=== PATIENT | male | born 1965 | race Caucasian/White ===

== ENCOUNTER 2016-11-05 21:22 | Emergency (ER) | payer OTHER ==
[~2016-11-05] VITALS: Ht 172.7 cm; Wt 80.6 kg
[~2016-11-05 21:22] MED LIST: ROLAIDS PO
--- OUTSIDE RECORDS SUMMARY | 2016-11-05 21:27 | XMS REPORT | Continuity of Care Document ---
Author Author [facility] Address Unknown Phone Unavailable Allergies Active Description Code Type Severity Reaction Onset Reported/Identified Relationship to Patient Clinical Status Yes No Known Drug Allergies [id number] Drug Allergy Unknown N/ A 04/05/2014 Medications Problems Date Dx Coded Attending Type Code Diagnosis Diagnosed By 04/05/2014 HARMONY BERNABE, DANIELA Ferro Ot 789.00 ABDOMINAL PAIN, UNSPECIFIED SITE Procedures Results Encounters ACCT No. Visit Date/Time Discharge Status Pt. Type Provider Facility Loc./Unit Complaint [id number] 04/05/2014 15:44:00 2013 18:25:00 DIS Emergency HARMONY BERNABE, DANIELA Ferro [facility] ED
--- OUTSIDE RECORDS SUMMARY | 2016-11-05 21:28 | XMS REPORT | Continuity of Care Document ---
Author Author [facility] Address Unknown Phone Unavailable Allergies Active Description Code Type Severity Reaction Onset Reported/Identified Relationship to Patient Clinical Status Yes No Known Drug Allergies [id number] Drug Allergy Unknown N/ A 04/05/2014 Medications Problems Date Dx Coded Attending Type Code Diagnosis Diagnosed By 04/05/2014 HARMONY BERNABE, DANIELA Ferro Ot 789.00 ABDOMINAL PAIN, UNSPECIFIED SITE Procedures Results Encounters ACCT No. Visit Date/Time Discharge Status Pt. Type Provider Facility Loc./Unit Complaint [id number] 04/05/2014 15:44:00 2013 18:25:00 DIS Emergency HARMONY BERNABE, DANIELA Ferro [facility] ED
[2016-11-05 21:32] VITALS: BP 142/92
[2016-11-05] MEDS ORDERED: PROPARACAINE 0.5% OD ONE (21:40)
[2016-11-05] MEDS ORDERED: FLUORESCEIN (FLUOR-I-STRIPS) 1 MG STRIP ONE (21:42)
[2016-11-05] MEDS ORDERED: EYE WASH 120 ML BTL ONE (21:48)
[2016-11-05] MEDS ORDERED: ED- HYDROcodone/ACETAMINOPHEN 5MG/325MG (NORCO) 6 TABLETS/BTL PO ONE ×2 (22:00→22:07)
[2016-11-05] MEDS ORDERED: EYE WASH 120 ML BTL OS ONE (22:00)
[2016-11-05] MEDS ORDERED: ERYTHROMYCIN 0.5% OPHTHALMIC OINTMENT 1 GM TUBE OS ONE (22:00)
[2016-11-05] MEDS ORDERED: ERYTHROMYCIN 0.5% OPHTHALMIC OINTMENT 1 GM TUBE ONE (22:07)
== END 2016-11-05 22:20 | disposition home or self-care (01) ==
LOC: ED 21:24
DX: S05.02XA Injury of conjunctiva and corneal abrasion without foreign body, left eye, initial encounter (principal); W22.8XXA Striking against or struck by other objects, initial encounter; Y93.H2 Activity, gardening and landscaping; Y92.007 Garden or yard of unspecified non-institutional (private) residence as the place of occurrence of the external cause
CPT/HCPCS: 99282; 99283

== ENCOUNTER → 2016-11-06 | Outpatient (REF) | payer OTHER | LOC: LAB 10:51 | PROVIDERS: ATTEND Ophthalmology | DX: H16.012 Central corneal ulcer, left eye (principal) | CPT/HCPCS: 87070 ==